=== PATIENT | female | born 1970 | race Caucasian/White ===

== ENCOUNTER 2017-02-01 02:54 | Inpatient (IN) | payer BC ==
[~2017-02-01] VITALS: Ht 165.1 cm; Wt 76.2 kg
[~2017-02-01 02:54] MED LIST: ALBUTEROL SULF8.5 GM IH; IPRATR-ALBUTEROL3 ML IH; KEFLEX500 MG PO; LEVAQUIN750 MG PO; PREDNISONE20 MG PO; PREDNISONE50 MG PO; PRILOSEC20 MG PO; PROVENTIL2.5 MG/3 M IH; VENTOLIN HFA18 GM IH
[2017-02-01 03:38] LABS: HEMATOCRIT 48.8 % (36.0-46.0); MCH 25.7 PG (29.0-34.0); MCHC 30.3 G/DL (30.0-36.0); MCV 84.9 FL (83-99); MEAN PLAT.VOLUME 9.5 uM^3 (9.5-12.4); PLATELET COUNT 291 K/uL (156-360); RBC DIS.WIDTH-CV 14.5 % (11.8-14.6); RBC DIS.WIDTH-SD 44.2 % (39-53); RED BLOOD COUNT 5.75 M/uL (3.80-5.20); WHITE BLOOD COUNT 19.9 K/uL (4.1-10.2)
[2017-02-01 03:50] LABS: VENOUS PCO2 58 mm Hg (41-51)
[2017-02-01 03:51] LABS: CHLORIDE 94 mEq/L (99-109); POTASSIUM 4.2 mEq/L (3.7-5.4); SODIUM 137 mEq/L (136-147)
[2017-02-01 03:53] LABS: GLUCOSE 133 mg/dL (70-99)
[2017-02-01 03:55] LABS: ANION GAP 10 MEQ/L (2-14); CARBON DIOXIDE (BICARBONATE) > 40.0 MEQ/L (20-31)
[2017-02-01 03:57] LABS: GFR ESTIMATE (CALCULATED) > 59 mL/min/
[2017-02-01 03:58] LABS: UREA NITROGEN (BUN) 18 mg/dL (9-23)
[2017-02-01 04:03] LABS: TROP-I INTERPRETATION NEGATIVE; TROPONIN-I 0.16 ng/mL (0.0-0.30)
[2017-02-01 04:36] LABS: D-DIMER ELISA 0.29 mg/L FEU (< 0.57)
[2017-02-01] MEDS ORDERED: BUSPAR10 MG PO (07:32)
[2017-02-01] MEDS ORDERED: METHIMAZOLE5 MG PO (07:34)
[2017-02-01] MEDS ORDERED: MONTELUKAST SOD10 MG PO (07:36)
[2017-02-01] MEDS ORDERED: PREDNISONE20 MG PO (07:37)
[2017-02-01] MEDS ORDERED: PAROXETINE HCL20 MG PO (07:37)
[2017-02-01] MEDS ORDERED: PREDNISONE10 MG PO (07:38)
[2017-02-01] MEDS ORDERED: BUSPAR15 MG PO (07:39)
[2017-02-01] MEDS ORDERED: PROMETHAZINE HC25 M1 PO (07:40)
[2017-02-01] MEDS ORDERED: METHADONE10 MG PO (07:43)
[2017-02-01] MEDS ORDERED: ADVAIR HFA120 INHALA IH (09:24)
[2017-02-01] MEDS ORDERED: FLEXERIL10 MG PO (09:25)
[2017-02-01] MEDS ORDERED: PAIN RELIEF EX500 MG PO (09:25)
[2017-02-01 09:45] LABS: ADD MIUA? NO; BILIRUBIN NEGATIVE; BLOOD NEGATIVE; COLOR YELLOW ((YELLOW)); GLUCOSE (STRIP) NEGATIVE; KETONES NEGATIVE; LEUKOCYTES NEGATIVE; NITRITE NEGATIVE; PROTEIN (STRIP) NEGATIVE; SPECIFIC GRAVITY 1.011 (1.000-1.030); UCUL ADDED? NO; UROBILINOGEN 0.2 MG/DL (0.2-1.0)
[2017-02-01 10:11] LABS: TROP-I INTERPRETATION INDETERMINATE; TROPONIN-I 0.35 ng/mL (0.0-0.30)
[2017-02-01 14:49] VITALS: BP 147/85
[2017-02-01 15:23] VITALS: BP 147/85
[2017-02-01 19:00] VITALS: BP 124/76
[2017-02-01 23:00] VITALS: BP 163/72
[2017-02-02 03:30] VITALS: BP 137/78
[2017-02-02 05:26] LABS: MCH 26.4 PG (29.0-34.0); MCHC 31.1 G/DL (30.0-36.0); MCV 84.9 FL (83-99); MEAN PLAT.VOLUME 9.8 uM^3 (9.5-12.4); PLATELET COUNT 307 K/uL (156-360); RBC DIS.WIDTH-CV 14.5 % (11.8-14.6); RBC DIS.WIDTH-SD 45.1 % (39-53); WHITE BLOOD COUNT 23.1 K/uL (4.1-10.2)
[2017-02-02 05:46] LABS: ANION GAP 7 MEQ/L (2-14); CHLORIDE 93 MEQ/L (99-109); GFR ESTIMATE (CALCULATED) > 59 mL/min/; GLUCOSE 145 mg/dL (70-99); POTASSIUM 4.6 MEQ/L (3.7-5.4); SAMPLE HEMOLYSIS CHECK 0; SAMPLE ICTERIC CHECK 0; SAMPLE LIPEMIA CHECK 0; SODIUM 137 MEQ/L (136-147); UREA NITROGEN (BUN) 16 mg/dL (9-23)
[2017-02-02 07:39] VITALS: BP 129/72
[2017-02-02 11:46] VITALS: BP 127/64
[2017-02-02 15:21] VITALS: BP 134/65
[2017-02-02] MEDS ORDERED: SPIRIVA RESPIMAT4 GM IH (15:57)
[2017-02-02 20:55] VITALS: BP 141/72
[2017-02-02 23:56] VITALS: BP 122/69
[2017-02-03 03:30] VITALS: BP 124/76
[2017-02-03 06:13] LABS: HEMATOCRIT 42.8 % (36.0-46.0); MCH 25.9 PG (29.0-34.0); MCHC 30.6 G/DL (30.0-36.0); MCV 84.8 FL (83-99); MEAN PLAT.VOLUME 9.6 uM^3 (9.5-12.4); PLATELET COUNT 271 K/uL (156-360); RBC DIS.WIDTH-CV 14.7 % (11.8-14.6); RBC DIS.WIDTH-SD 45.5 % (39-53); RED BLOOD COUNT 5.05 M/uL (3.80-5.20); WHITE BLOOD COUNT 17.9 K/uL (4.1-10.2)
[2017-02-03 06:45] LABS: ANION GAP 7 MEQ/L (2-14); CHLORIDE 95 MEQ/L (99-109); GFR ESTIMATE (CALCULATED) > 59 mL/min/; GLUCOSE 117 mg/dL (70-99); POTASSIUM 4.6 MEQ/L (3.7-5.4); SAMPLE HEMOLYSIS CHECK 0; SAMPLE ICTERIC CHECK 0; SAMPLE LIPEMIA CHECK 0; SODIUM 138 MEQ/L (136-147); UREA NITROGEN (BUN) 17 mg/dL (9-23)
[2017-02-03 07:11] VITALS: BP 129/71
[2017-02-03 11:37] VITALS: BP 134/65
[2017-02-03 15:31] VITALS: BP 137/60
[2017-02-03 20:24] VITALS: BP 141/80
[2017-02-03 23:02] VITALS: BP 139/67
[2017-02-04 02:37] VITALS: BP 132/72
[2017-02-04 05:48] LABS: HEMATOCRIT 41.6 % (36.0-46.0); MCHC 31.5 G/DL (30.0-36.0); MCV 85.8 FL (83-99); MEAN PLAT.VOLUME 9.8 uM^3 (9.5-12.4); PLATELET COUNT 252 K/uL (156-360); RBC DIS.WIDTH-CV 14.8 % (11.8-14.6); RBC DIS.WIDTH-SD 46.7 % (39-53); RED BLOOD COUNT 4.85 M/uL (3.80-5.20); WHITE BLOOD COUNT 18.6 K/uL (4.1-10.2)
[2017-02-04 07:20] LABS: CHLORIDE 97 mEq/L (99-109); POTASSIUM 3.8 mEq/L (3.7-5.4); SODIUM 136 mEq/L (136-147)
[2017-02-04 07:21] LABS: GLUCOSE 108 mg/dL (70-99)
[2017-02-04 07:23] LABS: ANION GAP 7 MEQ/L (2-14)
[2017-02-04 07:25] LABS: GFR ESTIMATE (CALCULATED) > 59 mL/min/
[2017-02-04 07:26] LABS: UREA NITROGEN (BUN) 15 mg/dL (9-23)
[2017-02-04 07:30] VITALS: BP 137/75
[2017-02-04] MEDS ORDERED: DOXYCYCLINE HY100 M3 PO ×2 (10:21→11:02)
[2017-02-04] MEDS ORDERED: PAROXETINE HCL30 MG PO ×2 (10:21→11:02)
[2017-02-04] MEDS ORDERED: PREDNISONE10 M1 PO ×2 (10:21→11:02)
== END 2017-02-04 13:40 | disposition home or self-care (01) | DRG 189 ==
LOC: EME 02:54 → EDOF 05:28 → 4EAST 05:28
PROVIDERS: Emergency Medicine; Hospitalist
DX: J96.01 Acute respiratory failure with hypoxia (principal); J44.1 Chronic obstructive pulmonary disease with (acute) exacerbation; J45.901 Unspecified asthma with (acute) exacerbation; E03.9 Hypothyroidism, unspecified; F32.9 Major depressive disorder, single episode, unspecified; F41.0 Panic disorder [episodic paroxysmal anxiety]; G89.29 Other chronic pain; G43.909 Migraine, unspecified, not intractable, without status migrainosus; F11.20 Opioid dependence, uncomplicated; Z87.891 Personal history of nicotine dependence; Z99.81 Dependence on supplemental oxygen
CPT/HCPCS: 71010; 80048; 81003; 82803; 83605; 83880; 84484; 85027; 85379; 87040; 93005; 94640; 94640 76; 94667; 94668; 94799; 99202; 99281; 99285; J0692; J1100; J1650; J2930; J7050; J7512

== ENCOUNTER 2018-03-19 13:39 | Inpatient (IN) | payer BC ==
[~2018-03-19] VITALS: Ht 172.7 cm; Wt 86.4 kg
[~2018-03-19 13:39] MED LIST changes: +ADVAIR HFA120 INHALA IH; +BUSPAR10 MG PO; +BUSPAR15 MG PO; +DOXYCYCLINE HY100 M3 PO; +FLEXERIL10 MG PO; +METHADONE10 MG PO; +METHIMAZOLE5 MG PO; +MONTELUKAST SOD10 MG PO; +PAIN RELIEF EX500 MG PO; +PAROXETINE HCL20 MG PO; +PAROXETINE HCL30 MG PO; +PREDNISONE10 M1 PO; +PREDNISONE10 MG PO; +PROMETHAZINE HC25 M1 PO; +SPIRIVA RESPIMAT4 GM IH
[2018-03-19 15:17] LABS: BASOPHIL (%) 0.2 % (0-1); EOSINOPHIL (%) 0.5 % (0-5); EOSINOPHIL COUNT 0.1 K/uL (0-0.3); HEMATOCRIT 36.2 % (36.0-46.0); HEMOGLOBIN 11.5 G/DL (11.9-15.5); IMMATURE GRANULOCYTE (%) 0.5 % (0.0-0.7); LYMPHOCYTE (%) 24.9 % (15-42); LYMPHOCYTE COUNT 3.1 K/uL (1.0-2.8); MCH 27.5 PG (29.0-34.0); MCHC 31.8 G/DL (30.0-36.0); MCV 86.6 FL (83-99); MONOCYTE COUNT 0.5 K/uL (0-0.8); NEUTROPHIL (%) 69.9 % (45-76); NEUTROPHIL COUNT 8.7 K/uL (1.8-6.4); PLATELET COUNT 356 K/uL (156-360); RBC DIS.WIDTH-CV 14.1 % (11.8-14.6); RBC DIS.WIDTH-SD 44.8 % (39-53); RED BLOOD COUNT 4.18 M/uL (3.80-5.20); WHITE BLOOD COUNT 12.4 K/uL (4.1-10.2)
[2018-03-19 15:27] LABS: ALBUMIN 3.9 g/dL (3.2-4.8); CHLORIDE 103 mEq/L (99-109); POTASSIUM 3.3 mEq/L (3.7-5.4); SODIUM 142 mEq/L (136-147)
[2018-03-19 15:29] LABS: GLUCOSE 113 mg/dL (70-99); TOTAL PROTEIN 7.4 g/dL (6.4-8.3)
[2018-03-19 15:31] LABS: TOTAL BILIRUBIN 0.6 mg/dL (0.0-1.0)
[2018-03-19 15:33] LABS: ALKALINE PHOSPHATASE 90 IU/L (3-129); CREATININE 0.8 mg/dL (0.6-1.3); GFR ESTIMATE (CALCULATED) > 59 mL/min/
[2018-03-19 15:34] LABS: UREA NITROGEN (BUN) 12 mg/dL (9-23)
[2018-03-19 15:35] LABS: AST (GOT) 19 IU/L (2-34)
[2018-03-19 15:36] LABS: ALT (GPT) 21 IU/L (3-49)
[2018-03-19 15:39] LABS: TROP-I INTERPRETATION NEGATIVE; TROPONIN-I < 0.01 ng/mL (0.0-0.30)
[2018-03-19 16:44] LABS: BICARBONATE 30.3 mEq/L (22-26); CARBOXY HGB 2.4 % (0-5); COMMENTS - BLOOD GASES A+C+; DEVICE NC; METHEMOGLOBIN 1.1 % (0-1.5); O2 FLOW 7 L/MIN; PCO2 50 mm Hg (35-45); PO2 113 mm Hg (80-100); SITE RR; TOTAL RESP RATE 20 resp/min; pH 7.39 (7.35-7.45)
[2018-03-19 16:45] LABS: BASE EXCESS 4.5 mEq/L (-3 to +3)
[2018-03-19] MEDS ORDERED: TIZANIDINE HCL2 MG PO (19:19)
[2018-03-19] MEDS ORDERED: AMITRIPTYLINE H25 MG PO (19:19)
[2018-03-19] MEDS ORDERED: SYMBICORT60 INHALAT IH (19:21)
[2018-03-19] MEDS ORDERED: ZOLMITRIPTAN5 MG PO (19:22)
[2018-03-19] MEDS ORDERED: DICLOFENAC SOD100 MG PO (19:22)
[2018-03-19] MEDS ORDERED: PROMETHAZINE12.5 M1 PO (19:22)
[2018-03-19 20:02] LABS: MAGNESIUM 2.3 mg/dL (1.3-2.7)
[2018-03-19 20:49] VITALS: BP 136/69
[2018-03-19 21:12] LABS: APPEARANCE CLEAR ((CLEAR)); BILIRUBIN NEGATIVE; BLOOD NEGATIVE; GLUCOSE (STRIP) NEGATIVE; KETONES NEGATIVE; LEUKOCYTES NEGATIVE; NITRITE NEGATIVE; PROTEIN (STRIP) NEGATIVE; SPECIFIC GRAVITY 1.011 (1.000-1.030); UCUL ADDED? NO; UROBILINOGEN 0.2 MG/DL (0.2-1.0)
[2018-03-19 21:16] LABS: COLOR LT.RED ((YELLOW))
[2018-03-19 23:22] VITALS: BP 128/64
[2018-03-20] VITALS (7 sets, daily range): BP systolic 116–144; BP diastolic 56–82
[2018-03-20 05:05] LABS: BASOPHIL (%) 0 % (0-1); EOSINOPHIL (%) 0 % (0-5); HEMATOCRIT 34.5 % (36.0-46.0); HEMOGLOBIN 10.8 G/DL (11.9-15.5); IMMATURE GRANULOCYTE (%) 0.3 % (0.0-0.7); LYMPHOCYTE (%) 15.4 % (15-42); LYMPHOCYTE COUNT 0.9 K/uL (1.0-2.8); MCH 27.6 PG (29.0-34.0); MCHC 31.3 G/DL (30.0-36.0); MONOCYTE (%) 1.7 % (3-12); MONOCYTE COUNT 0.1 K/uL (0-0.8); NEUTROPHIL (%) 82.6 % (45-76); NEUTROPHIL COUNT 4.9 K/uL (1.8-6.4); PLATELET COUNT 320 K/uL (156-360); RBC DIS.WIDTH-CV 14.2 % (11.8-14.6); RBC DIS.WIDTH-SD 45.3 % (39-53); RED BLOOD COUNT 3.92 M/uL (3.80-5.20); WHITE BLOOD COUNT 5.9 K/uL (4.1-10.2)
[2018-03-20 05:51] LABS: CHLORIDE 104 MEQ/L (99-109); CREATININE 0.6 MG/DL (0.6-1.3); GFR ESTIMATE (CALCULATED) > 59 mL/min/; SODIUM 140 MEQ/L (136-147); UREA NITROGEN (BUN) 10 mg/dL (9-23)
[2018-03-20 06:10] LABS: GLUCOSE 198 mg/dL (70-99); POTASSIUM 4.2 MEQ/L (3.7-5.4)
[2018-03-20 08:52] LABS: THYROTROPIN (TSH) 0.03 MIU/L (0.4-5.5)
[2018-03-21 03:16] VITALS: BP 115/65
[2018-03-21 07:45] VITALS: BP 129/66
[2018-03-21 10:00] LABS: HEMOGLOBIN A1c (GLYCOHEMOGLOB) 5.7 % (Below 5.7)
[2018-03-21 11:05] VITALS: BP 132/64
[2018-03-21 16:27] VITALS: BP 139/74
[2018-03-21 20:11] VITALS: BP 143/70
[2018-03-22 00:30] VITALS: BP 135/72
[2018-03-22 04:29] VITALS: BP 139/73
[2018-03-22 07:50] VITALS: BP 142/77
[2018-03-22 11:41] VITALS: BP 159/84
[2018-03-22 15:13] VITALS: BP 153/77
[2018-03-22 19:56] VITALS: BP 153/76
[2018-03-23 00:20] VITALS: BP 142/70
[2018-03-23 04:06] VITALS: BP 137/90
[2018-03-23 08:19] VITALS: BP 136/73
[2018-03-23 12:14] VITALS: BP 137/77
[2018-03-23 15:59] VITALS: BP 134/73
[2018-03-23 20:12] VITALS: BP 141/72
[2018-03-24 01:00] VITALS: BP 137/84
[2018-03-24 04:27] VITALS: BP 159/81
[2018-03-24 06:36] LABS: CHLORIDE 100 MEQ/L (99-109); CREATININE 0.7 MG/DL (0.6-1.3); GFR ESTIMATE (CALCULATED) > 59 mL/min/; GLUCOSE 116 mg/dL (70-99); SODIUM 141 MEQ/L (136-147); UREA NITROGEN (BUN) 19 mg/dL (9-23)
[2018-03-24 07:15] VITALS: BP 140/76
[2018-03-24 16:40] VITALS: BP 159/74
[2018-03-24 19:48] VITALS: BP 160/83
[2018-03-25 00:19] VITALS: BP 144/76
[2018-03-25 04:44] VITALS: BP 156/75
[2018-03-25 07:15] VITALS: BP 165/84
[2018-03-25 15:55] VITALS: BP 150/79
[2018-03-25 17:21] LABS: TROP-I INTERPRETATION NEGATIVE; TROPONIN-I < 0.01 ng/mL (0.0-0.30)
[2018-03-25 23:57] VITALS: BP 141/78
[2018-03-26 06:38] LABS: HEMATOCRIT 42.2 % (36.0-46.0); MCH 27.2 PG (29.0-34.0); MCHC 31.3 G/DL (30.0-36.0); PLATELET COUNT 399 K/uL (156-360); RBC DIS.WIDTH-CV 13.5 % (11.8-14.6); RBC DIS.WIDTH-SD 42.7 % (39-53); WHITE BLOOD COUNT 18.4 K/uL (4.1-10.2)
[2018-03-26 06:39] LABS: CHLORIDE 97 MEQ/L (99-109); CREATININE 0.6 MG/DL (0.6-1.3); GFR ESTIMATE (CALCULATED) > 59 mL/min/; GLUCOSE 127 mg/dL (70-99); HEMOGLOBIN 13.2 G/DL (11.9-15.5); POTASSIUM 4.7 MEQ/L (3.7-5.4); RED BLOOD COUNT 4.85 M/uL (3.80-5.20); SODIUM 140 MEQ/L (136-147); UREA NITROGEN (BUN) 18 mg/dL (9-23)
[2018-03-26 07:17] VITALS: BP 166/86
[2018-03-26 14:26] LABS: COMMENTS - BLOOD GASES A+C+; DEVICE VENTURI; FI02 50 %; O2 FLOW 12 L/MIN; PCO2 60 mm Hg (35-45); PO2 71 mm Hg (80-100); SITE RR; pH 7.39 (7.35-7.45)
[2018-03-26 14:27] LABS: BASE EXCESS 9.1 mEq/L (-3 to +3); BICARBONATE 36.3 mEq/L (22-26); CARBOXY HGB 1.4 % (0-5); METHEMOGLOBIN 1.2 % (0-1.5)
[2018-03-26 16:24] VITALS: BP 147/79
[2018-03-26 20:01] VITALS: BP 153/68
[2018-03-27 00:24] VITALS: BP 122/65
[2018-03-27 04:15] VITALS: BP 134/72
[2018-03-27 08:34] VITALS: BP 157/73
[2018-03-27 15:13] VITALS: BP 139/64
[2018-03-27 19:35] VITALS: BP 152/77
[2018-03-28 01:13] VITALS: BP 154/75
[2018-03-28 08:12] VITALS: BP 149/82
[2018-03-28 15:21] VITALS: BP 139/75
[2018-03-29 00:09] VITALS: BP 132/78
[2018-03-29 07:30] LABS: HEMOGLOBIN 14.9 G/DL (11.9-15.5); MCH 27.3 PG (29.0-34.0); MCHC 31.7 G/DL (30.0-36.0); MCV 86.2 FL (83-99); PLATELET COUNT 350 K/uL (156-360); RBC DIS.WIDTH-CV 13.8 % (11.8-14.6); RBC DIS.WIDTH-SD 43.3 % (39-53); RED BLOOD COUNT 5.45 M/uL (3.80-5.20); WHITE BLOOD COUNT 20.6 K/uL (4.1-10.2)
[2018-03-29 08:03] LABS: CHLORIDE 95 MEQ/L (99-109); CREATININE 0.7 MG/DL (0.6-1.3); GFR ESTIMATE (CALCULATED) > 59 mL/min/; GLUCOSE 90 mg/dL (70-99); POTASSIUM 4.5 MEQ/L (3.7-5.4); SODIUM 138 MEQ/L (136-147); UREA NITROGEN (BUN) 21 mg/dL (9-23)
[2018-03-29 08:18] VITALS: BP 155/83
[2018-03-29 16:06] VITALS: BP 148/74
[2018-03-30 00:13] VITALS: BP 133/80
[2018-03-30 06:03] LABS: BASOPHIL (%) 0.2 % (0-1); EOSINOPHIL (%) 0.7 % (0-5); EOSINOPHIL COUNT 0.1 K/uL (0-0.3); HEMATOCRIT 45.1 % (36.0-46.0); LYMPHOCYTE (%) 26.2 % (15-42); LYMPHOCYTE COUNT 4.9 K/uL (1.0-2.8); MCH 26.9 PG (29.0-34.0); MCV 86.7 FL (83-99); MONOCYTE (%) 5.2 % (3-12); NEUTROPHIL (%) 65.7 % (45-76); NEUTROPHIL COUNT 12.4 K/uL (1.8-6.4); PLATELET COUNT 381 K/uL (156-360); RBC DIS.WIDTH-CV 13.7 % (11.8-14.6); RBC DIS.WIDTH-SD 43.4 % (39-53); WHITE BLOOD COUNT 18.9 K/uL (4.1-10.2)
[2018-03-30 06:25] LABS: CHLORIDE 97 MEQ/L (99-109); CREATININE 0.7 MG/DL (0.6-1.3); GFR ESTIMATE (CALCULATED) > 59 mL/min/; GLUCOSE 96 mg/dL (70-99); POTASSIUM 4.5 MEQ/L (3.7-5.4); SODIUM 139 MEQ/L (136-147); UREA NITROGEN (BUN) 19 mg/dL (9-23)
[2018-03-30 08:30] VITALS: BP 140/77
[2018-03-30 16:15] VITALS: BP 134/65
[2018-03-31 00:31] VITALS: BP 131/80
[2018-03-31 06:38] LABS: HEMATOCRIT 48.7 % (36.0-46.0); MCHC 30.8 G/DL (30.0-36.0); MCV 87.7 FL (83-99); PLATELET COUNT 425 K/uL (156-360); RBC DIS.WIDTH-CV 13.8 % (11.8-14.6); RBC DIS.WIDTH-SD 44.6 % (39-53); RED BLOOD COUNT 5.55 M/uL (3.80-5.20); WHITE BLOOD COUNT 21.5 K/uL (4.1-10.2)
[2018-03-31 09:04] VITALS: BP 160/79
[2018-03-31 16:10] VITALS: BP 145/77
[2018-04-01 00:06] VITALS: BP 141/64
[2018-04-01 06:46] LABS: HEMATOCRIT 44.4 % (36.0-46.0); HEMOGLOBIN 13.7 G/DL (11.9-15.5); MCH 27.1 PG (29.0-34.0); MCHC 30.9 G/DL (30.0-36.0); MCV 87.9 FL (83-99); PLATELET COUNT 343 K/uL (156-360); RBC DIS.WIDTH-CV 14.1 % (11.8-14.6); RBC DIS.WIDTH-SD 45.2 % (39-53); RED BLOOD COUNT 5.05 M/uL (3.80-5.20); WHITE BLOOD COUNT 15.6 K/uL (4.1-10.2)
[2018-04-01 07:57] VITALS: BP 136/75
[2018-04-01 15:33] VITALS: BP 132/79
[2018-04-01 23:22] VITALS: BP 120/79
[2018-04-02 03:54] VITALS: BP 135/76
[2018-04-02 07:49] VITALS: BP 145/73
[2018-04-02 15:25] VITALS: BP 142/65
[2018-04-03] VITALS (21 sets, daily range): BP systolic 104–150; BP diastolic 66–95
[2018-04-03 04:56] LABS: COMMENTS - BLOOD GASES C+A+; DEVICE NRBM; FI02 100 %; O2 FLOW 15 L/MIN; PCO2 60 mm Hg (35-45); PO2 53 mm Hg (80-100); SITE RR; TOTAL RESP RATE 28 resp/min; pH 7.33 (7.35-7.45)
[2018-04-03 04:57] LABS: BASE EXCESS 3.8 mEq/L (-3 to +3); BICARBONATE 31.6 mEq/L (22-26); CARBOXY HGB 1.5 % (0-5)
[2018-04-03 06:27] LABS: COMMENTS - BLOOD GASES C+; DEVICE NCH; O2 FLOW 10 L/MIN; PCO2 52 mm Hg (35-45); PO2 52 mm Hg (80-100); SITE LR; pH 7.42 (7.35-7.45)
[2018-04-03 06:28] LABS: BASE EXCESS 7.4 mEq/L (-3 to +3); BICARBONATE 33.7 mEq/L (22-26); CARBOXY HGB 1.3 % (0-5)
[2018-04-03 08:13] LABS: BASOPHIL (%) 0.2 % (0-1); BASOPHIL COUNT 0.1 K/uL (0-0.1); EOSINOPHIL (%) 0.1 % (0-5); HEMOGLOBIN 14.3 G/DL (11.9-15.5); IMMATURE GRANULOCYTE (%) 1.5 % (0.0-0.7); LYMPHOCYTE (%) 8.9 % (15-42); LYMPHOCYTE COUNT 2.3 K/uL (1.0-2.8); MCH 27.2 PG (29.0-34.0); MCHC 31.8 G/DL (30.0-36.0); MCV 85.6 FL (83-99); MONOCYTE (%) 3.3 % (3-12); MONOCYTE COUNT 0.8 K/uL (0-0.8); PLATELET COUNT 402 K/uL (156-360); RBC DIS.WIDTH-SD 43.8 % (39-53); RED BLOOD COUNT 5.26 M/uL (3.80-5.20); WHITE BLOOD COUNT 25.6 K/uL (4.1-10.2)
[2018-04-03 08:41] LABS: CHLORIDE 92 MEQ/L (99-109); CREATININE 0.8 MG/DL (0.6-1.3); GFR ESTIMATE (CALCULATED) > 59 mL/min/; GLUCOSE 125 mg/dL (70-99); POTASSIUM 4.3 MEQ/L (3.7-5.4); SODIUM 137 MEQ/L (136-147); UREA NITROGEN (BUN) 20 mg/dL (9-23)
[2018-04-04] VITALS (18 sets, daily range): BP systolic 115–150; BP diastolic 67–85
[2018-04-04 05:15] LABS: BASOPHIL (%) 0.1 % (0-1); EOSINOPHIL (%) 0 % (0-5); HEMATOCRIT 41.8 % (36.0-46.0); HEMOGLOBIN 13.1 G/DL (11.9-15.5); IMMATURE GRANULOCYTE (%) 1.2 % (0.0-0.7); LYMPHOCYTE (%) 13.4 % (15-42); LYMPHOCYTE COUNT 2.7 K/uL (1.0-2.8); MCH 27.2 PG (29.0-34.0); MCHC 31.3 G/DL (30.0-36.0); MCV 86.7 FL (83-99); MONOCYTE COUNT 0.6 K/uL (0-0.8); NEUTROPHIL (%) 82.3 % (45-76); NEUTROPHIL COUNT 16.7 K/uL (1.8-6.4); PLATELET COUNT 360 K/uL (156-360); RBC DIS.WIDTH-CV 14.1 % (11.8-14.6); RBC DIS.WIDTH-SD 44.6 % (39-53); RED BLOOD COUNT 4.82 M/uL (3.80-5.20); WHITE BLOOD COUNT 20.3 K/uL (4.1-10.2)
[2018-04-04 05:37] LABS: ALBUMIN 3.5 G/DL (3.2-4.8); ALKALINE PHOSPHATASE 49 IU/L (3-129); ALT (GPT) 37 IU/L (3-49); AST (GOT) 15 IU/L (2-34); DIRECT BILIRUBIN 0.2 mg/dL (0.0-0.3); TOTAL BILIRUBIN 1.5 MG/DL (0.0-1.0); TOTAL PROTEIN 6.4 G/DL (6.4-8.3)
[2018-04-05 05:46] VITALS: BP 142/74
[2018-04-05 07:15] VITALS: BP 143/72
[2018-04-05 09:00] LABS: HEMATOCRIT 42.7 % (36.0-46.0); HEMOGLOBIN 13.5 G/DL (11.9-15.5); MCH 27.2 PG (29.0-34.0); MCHC 31.6 G/DL (30.0-36.0); MCV 85.9 FL (83-99); PLATELET COUNT 373 K/uL (156-360); RBC DIS.WIDTH-CV 14.1 % (11.8-14.6); RBC DIS.WIDTH-SD 43.5 % (39-53); RED BLOOD COUNT 4.97 M/uL (3.80-5.20)
[2018-04-05 09:30] LABS: CHLORIDE 94 MEQ/L (99-109); CREATININE 0.6 MG/DL (0.6-1.3); GFR ESTIMATE (CALCULATED) > 59 mL/min/; GLUCOSE 123 mg/dL (70-99); POTASSIUM 4.5 MEQ/L (3.7-5.4); SODIUM 137 MEQ/L (136-147); UREA NITROGEN (BUN) 17 mg/dL (9-23)
[2018-04-05 11:16] VITALS: BP 116/78
[2018-04-05 16:39] VITALS: BP 132/78
[2018-04-05 20:20] VITALS: BP 139/76
[2018-04-05 23:55] VITALS: BP 133/81
[2018-04-06 04:00] VITALS: BP 133/81
[2018-04-06 06:42] VITALS: BP 132/68
[2018-04-06 08:20] LABS: HEMATOCRIT 40.2 % (36.0-46.0); HEMOGLOBIN 12.6 G/DL (11.9-15.5); MCH 27.3 PG (29.0-34.0); MCHC 31.3 G/DL (30.0-36.0); MCV 87.2 FL (83-99); PLATELET COUNT 328 K/uL (156-360); RBC DIS.WIDTH-CV 14.1 % (11.8-14.6); RBC DIS.WIDTH-SD 44.8 % (39-53); RED BLOOD COUNT 4.61 M/uL (3.80-5.20); WHITE BLOOD COUNT 15.5 K/uL (4.1-10.2)
[2018-04-06 11:39] VITALS: BP 136/82
[2018-04-06 15:58] VITALS: BP 144/78
[2018-04-06 19:09] VITALS: BP 162/79
[2018-04-06 23:32] VITALS: BP 126/72
[2018-04-07 04:06] VITALS: BP 150/89
[2018-04-07 07:05] VITALS: BP 141/71
[2018-04-07 13:05] VITALS: BP 136/77
[2018-04-07 16:47] VITALS: BP 139/73
[2018-04-07 19:22] VITALS: BP 147/83
[2018-04-08] VITALS (7 sets, daily range): BP systolic 126–141; BP diastolic 67–84
[2018-04-09 08:10] VITALS: BP 136/79
[2018-04-09 13:18] LABS: BASOPHIL (%) 0.3 % (0-1); EOSINOPHIL (%) 0.2 % (0-5); HEMOGLOBIN 13.7 G/DL (11.9-15.5); IMMATURE GRANULOCYTE (%) 2.2 % (0.0-0.7); LYMPHOCYTE (%) 15.9 % (15-42); LYMPHOCYTE COUNT 2.2 K/uL (1.0-2.8); MCH 27.7 PG (29.0-34.0); MCHC 31.1 G/DL (30.0-36.0); MCV 88.9 FL (83-99); MONOCYTE (%) 3.8 % (3-12); MONOCYTE COUNT 0.5 K/uL (0-0.8); NEUTROPHIL (%) 77.6 % (45-76); NEUTROPHIL COUNT 10.5 K/uL (1.8-6.4); PLATELET COUNT 345 K/uL (156-360); RBC DIS.WIDTH-CV 14.4 % (11.8-14.6); RBC DIS.WIDTH-SD 46.3 % (39-53); RED BLOOD COUNT 4.95 M/uL (3.80-5.20); WHITE BLOOD COUNT 13.6 K/uL (4.1-10.2)
[2018-04-09 14:05] LABS: CHLORIDE 95 MEQ/L (99-109); CREATININE 0.8 MG/DL (0.6-1.3); GFR ESTIMATE (CALCULATED) > 59 mL/min/; GLUCOSE 106 mg/dL (70-99); POTASSIUM 4.7 MEQ/L (3.7-5.4); SODIUM 138 MEQ/L (136-147); UREA NITROGEN (BUN) 18 mg/dL (9-23)
[2018-04-09 15:50] VITALS: BP 141/80
[2018-04-09 23:38] VITALS: BP 118/77
[2018-04-10 08:18] VITALS: BP 134/75
[2018-04-10] MEDS ORDERED: BENZONATATE100 MG PO (11:31)
[2018-04-10] MEDS ORDERED: ROBITUSSIN DM118 ML PO (11:31)
[2018-04-10] MEDS ORDERED: DOXYCYCLINE HY100 M3 PO (11:31)
[2018-04-10] MEDS ORDERED: VENLAFAXINE HCL75 M3 PO (11:31)
[2018-04-10] MEDS ORDERED: BUSPAR15 MG PO (11:31)
[2018-04-10] MEDS ORDERED: SPIRIVA RESPIMAT4 GM IH (11:38)
[2018-04-10] MEDS ORDERED: PREDNISONE5 MG PO (11:38)
[2018-04-10] MEDS ORDERED: CLONIDINE HCL0.1 MG PO (11:38)
[2018-04-10] MEDS ORDERED: LORAZEPAM1 MG PO (11:38)
== END 2018-04-10 15:48 | disposition home health service (06) | DRG 189 ==
LOC: EME 13:39 → EDOF 19:04 → 2EAST 19:04 → EDOF 19:04 → ENRESERV 19:07 → CANRESERV 19:14 → ENRESERV 19:14 → 2EAST 19:15 → CANRESERV 19:17 → ENRESERV 19:17 → CANRESERV 19:20 → ENRESERV 19:26 → 2EAST 20:26 → ENRESERV 03-26 12:24 → 2EASTP 03-26 12:24 → 4WEST 04-03 05:15 → ENRESERV 04-03 05:17 → 4WEST 04-03 05:21 → ENRESERV 04-04 19:16 → 4EAST 04-04 20:54 → ENRESERV 04-06 10:31 → 5SOUTH 04-06 13:53 → 4EAST 04-06 14:01 → ENRESERV 04-06 14:02 → CANRESERV 04-06 14:02 → ENRESERV 04-08 11:07 → 2EAST 04-08 13:29
PROVIDERS: Emergency Medicine; Hospitalist; Internal Medicine; Physician Assistant Medical; Surgery
PROC: 5A09357 Assistance with Respiratory Ventilation, Less than 24 Consecutive Hours, Continuous Positive Airway Pressure (ICD-10-PCS; principal; 2018-03-27)
DX: J96.21 Acute and chronic respiratory failure with hypoxia (principal); J96.22 Acute and chronic respiratory failure with hypercapnia; J18.0 Bronchopneumonia, unspecified organism; J20.9 Acute bronchitis, unspecified; J44.0 Chronic obstructive pulmonary disease with (acute) lower respiratory infection; J44.1 Chronic obstructive pulmonary disease with (acute) exacerbation; E66.2 Morbid (severe) obesity with alveolar hypoventilation; J45.901 Unspecified asthma with (acute) exacerbation; B37.0 Candidal stomatitis; D72.829 Elevated white blood cell count, unspecified; T38.0X5A Adverse effect of glucocorticoids and synthetic analogues, initial encounter; F11.23 Opioid dependence with withdrawal; Z91.14 Patient's other noncompliance with medication regimen; E87.6 Hypokalemia; Z68.30 Body mass index [BMI] 30.0-30.9, adult; G89.4 Chronic pain syndrome; G43.909 Migraine, unspecified, not intractable, without status migrainosus; E05.90 Thyrotoxicosis, unspecified without thyrotoxic crisis or storm; R60.0 Localized edema; F32.9 Major depressive disorder, single episode, unspecified; F41.0 Panic disorder [episodic paroxysmal anxiety]; F41.1 Generalized anxiety disorder; F17.290 Nicotine dependence, other tobacco product, uncomplicated
CPT/HCPCS: 36600; 71045; 71046; 71250; 71275; 80048; 80053; 80076; 81003; 82948; 83036; 83605; 83735; 83880; 84439; 84443; 84484; 85025; 85027; 85379; 87040; 87070; 87205; 87449; 87641; 93005; 93306; 93970; 94640; 94660; 94669; 94760; 94799; 97530 GP; 99281; 99285; J1450; J1650; J1940; J1956; J2060; J2270; J2543; J2920; J2930; J3475; J3480; J7030; J7040; J7050; J7512; Q0169